=== PATIENT | female | born 1995 | race African-American/Black ===

== ENCOUNTER 2017-06-01 08:59 | Emergency (ER) | payer SELFPAY ==
[2017-06-01 09:08] VITALS: BMI 25.7
--- NOTE | 2017-06-01 09:29 | DR.NAUSEAF ---
HPI - Time Seen Time seen: 09:30 - Primary Care Physician Primary Care Physician: KIZZY - HPI Comment HPI Comment: 2 DAYS AGO WENT TO A CLIENT HOUSE AND FELT DIZZY AND SOB WHEN SHE STATED SMELLING MILDEW THAT WAS AT THAT HOME. ALSO HAVING HEADACHE, RIGHT SIDED PAIN AND NUMBNESS. HISTORY OF RIGHT SIDED PAIN AND NUMBNESS RELATED TO HER SEIZURE DISORDER. IS LIKE AURA. SO FAR NO SEIZURE NOTES. OUT OF DILANTIN FOR FEW MONTHS NOW. - Complaints Chief Complaint Doctors Comments: DIZZINES, RT SIDE PAIN AND MMILD DIARRHEA. Chief Complaint:: PT C/O BEING A ROAD TESTER AND GOING INTO SOMEONE'S HOUSE LAST WEEK AND STARTING TO FEEL DIZZY AND FAINT DUE TO MELDEW SMELL AND PT C/O HAVING SEIZURE DISORDER BEING OUT OF MEDS DUE TO NO INS AND WHEN IT RAINS HER RIGHT SIDE HURTS AND HAVING A LITTLE DIARRHEA, - Reviewed Nurses Notes Reviewed: Yes - Source History Provided: Patient - Mode of Arrival Mode of Arrival: Ambulatory - Timing Onset of Chief Complaint: 05/30/17 - Context Onset: Spontaneous Recent: None : No History of: None - Associated Signs and Symptoms Abdominal Pain Quality: Cramping Symptoms: Diarrhea PMH - PMH Past Medical History: Yes Past Medical History: Seizures Past Surgical History: Yes Surgical History: Ortho Surgery, Other Past Surgical History Comment: HERNIA REPAIR, AND KNEE SURGERIES TIMES 2 ,, BR - Family History History of Family Medical Conditions: No Family Medical History: Hypertension - Social History Does patient currently use any type of tobacco product: Yes Have you used tobacco products in the last 12 months: Yes Type of Tobacco Use: Cigarettes How many years tobacco product used: 2 Does any household member use tobacco: No Alcohol Use: None Do you use any recreational Drugs:: No Lives With: Family Lives Where: Home - infectious screening In the last 2 months have you had wt loss of >10#?: NO Have you had fever, night sweats or hemotysis?: No Have you traveled outside the country in the last 6 months?: No Isolation: Standard ROS - Review of Systems Constitutional: No Symptoms Reported Eyes: No Symptoms Reported ENTM: No Symptoms Reported Respiratoy: No Symptoms Reported Cardiovascular: No Symptoms Reported Gastrointestinal/Abdominal: Abdominal Pain, Diarrhea Neurological: Headache, Dizziness, Other (RIGHT SIDED PAIN.) Musculoskeletal: No Symptoms Reported Integumentary: No Symptoms Reported Hematologic/Lymphatic: No Symptoms Reported Endocrine: No Symptoms Reported All Other Systems: Reviewed and Negative PE - Vital Signs Vitals: Temperature 96.9 F Pulse Rate 79 Respiratory Rate 20 Blood Pressure [Left Arm] 88/44 Blood Pressure [Right Arm] 146/89 Blood Pressure 126/76 O2 Sat by Pulse Oximetry 100 - General Limitations: No Limitations General Appearance: Alert - Head Head Exam: Normal Inspection - Eyes Eye exam: Normal Appearance - ENT ENT Exam: Normal External Ear Exam - Neck Neck Exam: Normal Inspection - Chest Chest Inspection: Symmetric Chest Wall Rise - Respiratory Respiratory Exam: Normal Lung Sounds Bilat Respiratory Exam: Bilateral Clear to Auscultation - Cardiovascular Cardiovascular Exam: Regular Rate, Normal Rhythm, Normal Heart Sounds - Abdominal Exam Abdominal Exam: Normal Bowel Sounds, Soft. negative: Tenderness - Rectal Rectal Exam: Deferred - External Exam: Female: Deferred : Bimanual Exam (female): Deferred - Extremities Extremities Exam: Normal Inspection - Back Back Exam: Normal Inspection - Neurologic Neurological Exam: Alert, Oriented X3, CN II-XII Intact, Normal Gait, Reflexes Normal. negative: Motor Sensory Deficit - Psychiatric Psychiatric Exam: Normal Affect, Normal Mood - Skin Skin Exam: Normal Color MDM - Differential Diagnosis Differential Diagnosis Comment: DIZZINESS, MIGRAINE, SEIZURE DISORDER Course - Treatment Treatment: SEE ORDERS. - Education/Counseling Education/Counseling: Patient, Education Educated On: Diagnosis, Needs for Follow Up ROR - Labs Reviewed Laboratory Results Reviewed?: Yes Result Diagrams: 06/01/17 10:01 06/01/17 10:01 Laboratory: WBC 12.4 X10^3/uL (3.6-10.0) H 06/01/17 10:01 RBC 4.31 X10^6/uL (3.5-5.4) 06/01/17 10:01 Hgb 12.7 g/dL (12.0-16.0) 06/01/17 10:01 Hct 36.7 % (36.0-47.0) 06/01/17 10:01 MCV 85.2 fL (80.0-100.0) 06/01/17 10:01 MCH 29.5 pg (27.0-34.0) 06/01/17 10:01 MCHC 34.6 g/dL (33.0-35.0) 06/01/17 10:01 RDW 12.1 % (11.6-16.5) 06/01/17 10:01 Plt Count 275 X10^3/uL (150.0-450.0) 06/01/17 10:01 MPV 8.4 fL (7.4-11.0) 06/01/17 10:01 Neut % (Auto) 65.5 % (42.0-75.0) 06/01/17 10:01 Lymph % (Auto) 25.4 % (21.0-51.0) 06/01/17 10:01 Gove % (Auto) 7.3 % (0.0-13.0) 06/01/17 10:01 Eos % (Auto) 1.1 % (0.9-2.9) 06/01/17 10:01 Baso % (Auto) 0.7 % (0.2-1.0) 06/01/17 10:01 Neut # (Auto) 8.1 x10^3/uL (2.2-4.8) H 06/01/17 10:01 Lymph # (Auto) 3.2 X10^3/uL (1.3-2.9) H 06/01/17 10:01 Gove # (Auto) 0.9 x10^3/uL (0.3-0.8) H 06/01/17 10:01 Eos # (Auto) 0.1 x10^3/uL (0.0-0.2) 06/01/17 10:01 Baso # (Auto) 0.1 X10^3/uL (0.0-0.1) 06/01/17 10:01 Absolute Nucleated RBC 0.0 /100WBC 06/01/17 10:01 Sodium 139 mmol/L (136-145) 06/01/17 10:01 Corrected Sodium TNP 06/01/17 10:01 Potassium 4.0 mmol/L (3.5-5.1) 06/01/17 10:01 Chloride 105 mmol/L (98-107) 06/01/17 10:01 Carbon Dioxide 26.7 mmol/L (21-32) 06/01/17 10:01 BUN 12 mg/dL (7-18) 06/01/17 10:01 Creatinine 0.68 mg/dL (0.55-1.02) 06/01/17 10:01 Est GFR (MDRD) Af Amer > 60 (>60) 06/01/17 10:01 Est GFR (MDRD) Non-Af > 60 (>60) 06/01/17 10:01 Glucose 89 mg/dL (65-99) 06/01/17 10:01 Calcium 8.5 mg/dL (8.5-10.1) 06/01/17 10:01 Corrected Calcium TNP 06/01/17 10:01 Total Bilirubin 0.30 mg/dL (0.2-1.0) 06/01/17 10:01 AST 11 Units/L (15-37) L 06/01/17 10:01 ALT 15 Units/L (12-78) 06/01/17 10:01 Alkaline Phosphatase 94 Units/L (46-116) 06/01/17 10:01 Total Protein 7.9 g/dL (6.4-8.2) 06/01/17 10:01 Albumin 3.8 g/dL (3.4-5.0) 06/01/17 10:01 Globulin 4.1 g/dL (2.5-4.5) 06/01/17 10:01 Albumin/Globulin Ratio 0.9 Ratio (1.1-2.1) L 06/01/17 10:01 Amylase 73 Units/L (25-115) 06/01/17 10:01 Lipase 176 Units/L (73-393) 06/01/17 10:01 - XRAY XRAY Interpreted by: Radiologist XRAY Findings: REPORT DISCUSS WITH PATIENT. - Diagnosis Discharge Problem: Seizure disorder, Dizziness, Pain of right side of body Diarrhea Qualifiers: Diarrhea type: unspecified type Qualified Code(s): R19.7 - Diarrhea, unspecified - Discharge Plan Disposition: HOME, SELF-CARE Condition: Stable Prescriptions: Diphenoxylate/Atropine [Lomotil] 1 tab PO TID PRN #15 tab PRN Reason: Phenytoin Sodium Ext Rel [Dilantin Cap 100 mg Ext Rel] 300 mg PO HS #90 cap - Follow ups/Referrals Follow ups/Referrals: NFD,None [Primary Care Provider] - 3 days VIDAL MARTINEZ [STAFF PHYSICIAN] - 3 days MEHRAN GAINES [STAFF PHYSICIAN] - 3 days - Instructions Instructions: Dizziness, [id number], Diarrhea, Adult, [id number] Additional Instructions: RETURN TO ED IF WORSE.
[2017-06-01 10:04] VITALS: BP 146/89
[2017-06-01 10:23] LABS: ALANINE AMINOTRANSFERASE 15 Units/L (12-78); ALBUMIN 3.8 g/dL (3.4-5.0); ALKALINE PHOSPHATASE 94 Units/L (46-116); ASPARTATE AMINO TRANSFERASE 11 Units/L (15-37); BLOOD UREA NITROGEN 12 mg/dL (7-18); CALCIUM 8.5 mg/dL (8.5-10.1); CARBON DIOXIDE 26.7 mmol/L (21-32); CHLORIDE 105 mmol/L (98-107); CREATININE 0.68 mg/dL (0.55-1.02); SODIUM 139 mmol/L (136-145); TOTAL PROTEIN 7.9 g/dL (6.4-8.2); eGFR BLACK RACES > 60 (>60); eGFR NON BLACK RACES > 60 (>60)
[2017-06-01] MEDS ORDERED: ZOFRAN INJ 4 MG VIAL IVP ONE (10:24)
[2017-06-01 10:25] LABS: BASOPHILS # (AUTO) 0.1 X10^3/uL (0.0-0.1); BASOPHILS % (AUTO) 0.7 % (0.2-1.0); EOSINOPHILS # (AUTO) 0.1 x10^3/uL (0.0-0.2); EOSINOPHILS % (AUTO) 1.1 % (0.9-2.9); HEMATOCRIT 36.7 % (36.0-47.0); HEMOGLOBIN 12.7 g/dL (12.0-16.0); LYMPHOCYTES # (AUTO) 3.2 X10^3/uL (1.3-2.9); LYMPHOCYTES % (AUTO) 25.4 % (21.0-51.0); MEAN CORPUSCULAR HEMOGLOBIN 29.5 pg (27.0-34.0); MEAN CORPUSCULAR HGB CONC 34.6 g/dL (33.0-35.0); MEAN CORPUSCULAR VOLUME 85.2 fL (80.0-100.0); MEAN PLATELET VOLUME 8.4 fL (7.4-11.0); MONOCYTES # (AUTO) 0.9 x10^3/uL (0.3-0.8); MONOCYTES % (AUTO) 7.3 % (0.0-13.0); NEUTROPHILS # (AUTO) 8.1 x10^3/uL (2.2-4.8); NEUTROPHILS % (AUTO) 65.5 % (42.0-75.0); PLATELET COUNT 275 X10^3/uL (150.0-450.0); RED BLOOD COUNT 4.31 X10^6/uL (3.5-5.4); RED CELL DISTRIBUTION WIDTH 12.1 % (11.6-16.5); WHITE BLOOD COUNT 12.4 X10^3/uL (3.6-10.0)
[2017-06-01 10:32] LABS: AMYLASE 73 Units/L (25-115); LIPASE 176 Units/L (73-393)
--- NOTE | 2017-06-01 10:38 | CT ---
HISTORY: Right upper extremity pain, nausea and vomiting, seizures Study: CT brain without contrast Comparison: MRI brain performed on 06/22/2015 Technique: Multiple axial images of the brain were obtained from the skull base to the vertex without administra tion of IV contrast. Findings: No acute intraparenchymal hemorrhage or mass can be identified. No extra-axial fluid collections are seen. No alteration in the attenuation of the brain parenchyma can be identified to suggest acute o r subacute ischemic change. The ventricular system is symmetric and nondilated. The extracranial st ructures are grossly unremarkable. IMPRESSION: 1. No acute intracranial process can be identified. Reported By:
--- NOTE | 2017-06-01 11:35 | RAD ---
History: Right arm pain for 3 days with nausea and vomiting Study: Acute abdominal series Comparison: Portable chest dated June 21, 2015 Findings: The lungs are clear and the heart and mediastinum are unremarkable. The bowel gas pattern is normal. No abnormal soft tissue mass or calcification is suggested. No bony abnormality is demonstrated. Impression: Negative Reported By:
== END 2017-06-01 12:21 | disposition home or self-care (01) ==
LOC: ER 09:13
DX: G40.909 Epilepsy, unspecified, not intractable, without status epilepticus (principal); R42 Dizziness and giddiness; R10.84 Generalized abdominal pain; R19.7 Diarrhea, unspecified; R51 Headache
CPT/HCPCS: 36415; 70450; 74022; 80053; 82150; 83690; 85025; 99282

== ENCOUNTER 2017-06-27 19:23 | Emergency (ER) | payer SELFPAY ==
[2017-06-27 19:27] VITALS: BP 125/77; BMI 26.6
--- NOTE | 2017-06-27 22:03 | DR.GENAD ---
HPI - PCP Primary Care Physician: NFD - Complaint/Symptoms Chief Complaint Doctors Comments: Patient states she feel off a [place] board two months ago and hit her occipital area on the ground with pain occipital area. Patient states she cannot rub the back of her head due to the pain. she denies neck pain or LOC. She denies blurred vision, nausea or vomiting. States she had a menstrual period about two days ago. She is sexually active with no contraceptives. She denies alcohol or tobacco usage. Chief Complaint:: "I FELL OFF A [place] BOARD SEVERAL MONTHS AGO AND MY HEAD HAS JUST NOW STARTED HURTING. I WANT IT CHECKED OUT." Self Treatment fo Chief Complaint: ADVIL TIMES 2 - Nurses notes reviewed Nurses Notes Review: Yes - Source History Provided: Patient - Mode of Arrival Mode of Arrival: Ambulatory - Timing Onset of Chief Complaint: 06/27/17 Came on: Gradually - Duration Duration: Constant How lon Duration: Weeks - Location Location: occipital pain - Severity Severity: Moderate - Modifying Factors Worsens:: direct pressure to occipital area Improves:: nothing PMH - PMH Past Medical History: Yes Past Medical History: Seizures Past Surgical History: Yes Surgical History: Ortho Surgery, Other - Family History History of Family Medical Conditions: Yes Family Medical History: Hypertension - Social History Do you use any recreational Drugs:: No Lives Where: Home - infectious screening Have you traveled outside the country in the last 6 months?: No Isolation: Standard ROS - Review of Systems Constitutional: No Symptoms Reported. negative: See HPI, Chills, Diaphoresis, Fever, Malaise, Weakness, Irritable, Fatigue, Loss of Appetite, Other Eyes: No Symptoms Reported ENTM: No Symptoms Reported Respiratoy: No Symptoms Reported. negative: See HPI, Productive Cough, Non- Productive Cough, Moist Cough, Dry Cough, Hacking Cough, Barking Cough, Brassy Cough, Orthopnea, Short of Breath, Stridor, Wheezing, Hemoptysis, Other Cardiovascular: No Symptoms Reported Gastrointestinal/Abdominal: No Symptoms Reported Genitourinary: No Symptoms Reported Neurological: No Symptoms Reported, Headache Musculoskeletal: No Symptoms Reported Integumentary: No Symptoms Reported Hematologic/Lymphatic: No Symptoms Reported Endocrine: No Symptoms Reported, Excessive Sweating Psychiatric: No Symptoms Reported. negative: See HPI, Anxiety, Depression, Hallucinations, Excessive crying, Suicidal, Other PE - Vital Signs Vitals: Temperature 98.6 F Pulse Rate 110 Respiratory Rate 16 Blood Pressure [Left Arm] 88/44 Blood Pressure [Right Arm] 146/89 Blood Pressure 125/77 O2 Sat by Pulse Oximetry 100 - General Limitations: No Limitations General Appearance: Alert, In No Apparent Distress - Head Head Exam: Normal Inspection, Normocephalic. negative: Atraumatic (occipital scalp with 4 cm area tenderness; no swelling or erythema noted.) - Eyes Eye exam: Normal Appearance, PERRL, EOMI. negative: Scleral Icterus, Conjunctival Injection, Nystagmus, Miosis, Mydrasis, Periorbital Swelling, Periorbital Tenderness, Other - ENT ENT Exam: Normal Exam, Normal Oropharynx, Normal External Ear Exam, Mucous Membranes Moist External Ear Exam: Normal External Inspection TM/Canal Exam: Bilateral Normal Nose Exam: Normal Nose Exam Mouth Exam: Normal Inspection. negative: Drooling, Trismus, Lip Swelling, Tongue Elevation, Tongue Swelling, Laceration, Other Throat Exam: Normal Inspection. negative: Tonsillar Erythema, Tonsillomegaly, Tonsillar Exudate, R Peritonsillar Mass, L Peritonsillar Mass, Muffled Voice, Other - Neck Neck Exam: Normal Inspection, Full ROM, Trachea Midline - Chest Chest Inspection: Normal Inspection, Symmetric Chest Wall Rise - Respiratory Respiratory Exam: Normal Lung Sounds Bilat Respiratory Exam: Bilateral Clear to Auscultation - Cardiovascular Cardiovascular Exam: Regular Rate, Normal Rhythm, Normal Heart Sounds - Abdominal Exam Abdominal Exam: Normal Inspection, Normal Bowel Sounds, Soft Abdominal Tenderness: negative: RUQ, RLQ, LUQ, LLQ, Epigastrium, Suprapubic, Diffuse, Mild, Moderate, Severe, Other - Extremities Extremities Exam: Normal Inspection, Full ROM, Normal Capillary Refill. negative: Tenderness, Edema, Joint Swelling, Calf Tenderness, Other - Back Back Exam: Normal Inspection, Full ROM. negative: Tenderness, (R) CVA Tenderness, (L) CVA Tenderness, Muscle Spasm, Paraspinal Tenderness, Vertebral Tenderness, Rashes, (R) Sciatic Notch Tenderness, (L) Sciatic Notch Tendern, (R ) Straight Leg Raise, (L) Straight Leg Raise, Other - Neurologic Neurological Exam: Alert, Oriented X3, CN II-XII Intact, Normal Gait, Reflexes Normal - Psychiatric Psychiatric Exam: Normal Affect, Normal Mood - Skin Skin Exam: Warm, Dry, Intact, Normal Color ROR - Labs Reviewed Laboratory Results Reviewed?: Yes (all labs and x-ray results reviewed and discussed with patient) Laboratory: HCG, Qual Negative <10 mIU/mL 06/27/17 22:05 - XRAY XRAY Interpreted by: Radiologist (CT head: No acute intracranial abnormality) - Diagnosis Discharge Problem: Sinusitis chronic, frontal Head injury Qualifiers: Encounter type: initial encounter Qualified Code(s): S09.90XA - Unspecified injury of head, initial encounter Contusion of head Qualifiers: Encounter type: initial encounter Contusion of head detail: scalp Qualified Code(s): S00.03XA - Contusion of scalp, initial encounter - Discharge Plan Disposition: HOME, SELF-CARE Condition: Stable Prescriptions: Ibuprofen [MOTRIN TAB 800 MG *] 800 mg PO BID PRN #24 tab PRN Reason: Pain/Inflammation - Follow ups/Referrals Follow ups/Referrals: NFD,None [Primary Care Provider] - 3 days Baldev Silva [STAFF PHYSICIAN] - 3 days - Instructions Instructions: Head Injury, Adult, Sinusitis, Adult, [id number], Contusion, [id number]
[2017-06-27 22:32] LABS: SERUM PREGNANCY TEST, QUAL NEGATIVE <10 mIU/mL
--- NOTE | 2017-06-27 22:35 | CT ---
CT head without contrast Indication: Head trauma Technique: Helical CT images of the brain were obtained without IV contrast. Reformatted images in th e coronal and sagittal planes were also generated for review. Comparison: 06/01/2017 Findings: There is no intracranial hemorrhage, focal or generalized edema, extra-axial collection or midline shift. The visualized paranasal sinuses and mastoid air cells are clear. The extracranial str uctures are grossly unremarkable. Impression: No acute intracranial abnormality. Reported By:
== END 2017-06-27 23:00 | disposition home or self-care (01) ==
LOC: ER 19:23
DX: S09.8XXA Other specified injuries of head, initial encounter (principal); S00.03XA Contusion of scalp, initial encounter; J32.1 Chronic frontal sinusitis; W19.XXXA Unspecified fall, initial encounter; Y92.9 Unspecified place or not applicable
CPT/HCPCS: 36415; 70450; 84703; 99282; 99283